=== PATIENT | male | born 1975 | race Caucasian/White ===

== ENCOUNTER 2020-09-20 23:01 | Inpatient (IN) | payer MEDICARE, OTHER ==
[~2020-09-20] VITALS: Ht 190.5 cm; Wt 117.9 kg
[~2020-09-20 23:01] MED LIST: AMIODARONE HCL200 MG PO; ASPIRIN EC81 MG PO; ATENOLOL50 MG PO; ATORVASTATIN CA20 MG PO; DILTIAZEM 24HR180 MG PO; FIORICET TAB1 EA PO; FORTAZ IM; GLUCOPHAGE XR500 MG PO; HEPARIN SO5000 UNIT2 SC; IPRATROPIU0.2 MG/1 M NEB; KLONOPIN TAB 00.5 MG PO; LANTUS INS100 UTS/M1 SC; LEVALBUTER1.25 MG/3 INH; LISINOPRIL20 MG PO; LOPID TAB 600600 MG PO; LOPRESSOR 50 MG50 MG PO; NEURONTIN100 MG PO; NORCO 7.5-3251 EACH PO; NORVASC 5 MG TAB5 MG PO; PEPCID20 MG PO; PREDNISONE20 MG PO; PRILOSEC OTC20 MG PO; ROCEPHIN IM/IV500 MG IV; SEROQUEL50 MG PO; SULAMYD 10% OP15 ML EYELF; THERAGRAN M TAB1 EA PO; VIBRAMYCIN100 MG PO; ZANAFLEX4 MG PO; ZYLOPRIM 100 M100 MG PO; ZYVOX IV 6600 MG/300 INJ
[2020-09-20 23:38] LABS: HEMOGLOBIN 10.1 gm/dl (14.0-17.5); RED BLOOD COUNT 3.55 M/UL (4.20-5.50); WHITE BLOOD COUNT 15.1 K/UL (4.5-11.0)
[2020-09-21 00:06] LABS: BUN/CREATININE RATIO 17 (0-10)
[2020-09-21] MEDS ORDERED: SEROQUEL100 MG PO (12:57)
[2020-09-21] MEDS ORDERED: LOPRESSOR 25 MG25 MG PO (12:58)
[2020-09-21] MEDS ORDERED: METHOCARBAMOL500 MG PO (12:58)
[2020-09-21] MEDS ORDERED: PROTONIX40 MG PO (12:58)
[2020-09-21] MEDS ORDERED: MELATONIN3 MG PO (12:59)
[2020-09-21] MEDS ORDERED: ELIQUIS5 MG PO (12:59)
[2020-09-21] MEDS ORDERED: LIPITOR80 MG PO (12:59)
[2020-09-21] MEDS ORDERED: MYLANTA MAXIMU355 ML PO (13:00)
[2020-09-21] MEDS ORDERED: NITROSTAT0.4 MG SL (13:02)
[2020-09-21] MEDS ORDERED: ZOFRAN 4 MG TAB4 MG PO (13:02)
[2020-09-21] MEDS ORDERED: HUMALOG100 UNIT/1 SC (13:06)
[2020-09-21] MEDS ORDERED: ALBUTEROL2.5 MG/3 M INH (13:07)
[2020-09-21] MEDS ORDERED: SEROQUEL25 MG PO (13:08)
[2020-09-21] MEDS ORDERED: ACETAMINOP650 MG/201 PO (13:08)
[2020-09-21] MEDS ORDERED: MYCOSTATIN OINT15 GM TOP (13:09)
[2020-09-21] MEDS ORDERED: DOCUSATE SODIU100 MG PO (13:10)
[2020-09-21] MEDS ORDERED: MULTIVITAMIN1 EACH PO (13:10)
[2020-09-21] MEDS ORDERED: SENNA S TABLET1 EACH PO (13:11)
[2020-09-21] MEDS ORDERED: DAKIN'S473 M1 TOP (13:12)
[2020-09-21] MEDS ORDERED: OXYCODONE HCL5 MG PO (13:13)
[2020-09-21] MEDS ORDERED: ZINC OXIDE28 GM TOP (13:20)
[2020-09-22 04:37] LABS: BUN/CREATININE RATIO 14 (0-10)
[2020-09-22 04:47] LABS: WHITE BLOOD COUNT 11.5 K/UL (4.5-11.0)
[2020-09-22 04:51] LABS: HEMOGLOBIN 7.5 gm/dl (14.0-17.5); RED BLOOD COUNT 2.77 M/UL (4.20-5.50)
[2020-09-25 05:52] LABS: HEMOGLOBIN 8.1 gm/dl (14.0-17.5); WHITE BLOOD COUNT 11.5 K/UL (4.5-11.0)
[2020-09-25 06:14] LABS: BUN/CREATININE RATIO 22 (0-10)
[2020-09-26 05:48] LABS: HEMOGLOBIN 8.5 gm/dl (14.0-17.5); RED BLOOD COUNT 3.06 M/UL (4.20-5.50); WHITE BLOOD COUNT 14.3 K/UL (4.5-11.0)
[2020-09-26 06:08] LABS: BUN/CREATININE RATIO 23 (0-10)
[2020-09-27 05:19] LABS: HEMOGLOBIN 8.1 gm/dl (14.0-17.5); RED BLOOD COUNT 2.85 M/UL (4.20-5.50); WHITE BLOOD COUNT 14.2 K/UL (4.5-11.0)
[2020-09-27 05:32] LABS: BUN/CREATININE RATIO 20 (0-10)
[2020-09-28 06:36] LABS: HEMOGLOBIN 8.4 gm/dl (14.0-17.5); RED BLOOD COUNT 3.05 M/UL (4.20-5.50)
[2020-09-28 06:49] LABS: BUN/CREATININE RATIO 24 (0-10)
[2020-09-29 02:14] LABS: RED BLOOD COUNT 2.88 M/UL (4.20-5.50); WHITE BLOOD COUNT 12.5 K/UL (4.5-11.0)
[2020-09-29 02:45] LABS: BUN/CREATININE RATIO 22 (0-10)
[2020-09-30 06:36] LABS: HEMOGLOBIN 8.4 gm/dl (14.0-17.5); RED BLOOD COUNT 3.12 M/UL (4.20-5.50); WHITE BLOOD COUNT 13.2 K/UL (4.5-11.0)
[2020-09-30 07:10] LABS: BUN/CREATININE RATIO 24 (0-10)
[2020-10-01 03:27] LABS: HEMOGLOBIN 8.4 gm/dl (14.0-17.5); RED BLOOD COUNT 2.98 M/UL (4.20-5.50); WHITE BLOOD COUNT 13.4 K/UL (4.5-11.0)
[2020-10-01 04:00] LABS: BUN/CREATININE RATIO 34 (0-10)
--- NOTE | 2020-10-01 13:31 | NUR ---
Single lumen PICC line inserted in the right brachial vein.
[2020-10-03 04:01] LABS: HEMOGLOBIN 8.3 gm/dl (14.0-17.5); RED BLOOD COUNT 2.95 M/UL (4.20-5.50); WHITE BLOOD COUNT 13.3 K/UL (4.5-11.0)
[2020-10-03 04:27] LABS: BUN/CREATININE RATIO 36 (0-10)
[2020-10-04 06:27] LABS: HEMOGLOBIN 8.7 gm/dl (14.0-17.5); RED BLOOD COUNT 3.08 M/UL (4.20-5.50); WHITE BLOOD COUNT 13.8 K/UL (4.5-11.0)
[2020-10-04 07:00] LABS: BUN/CREATININE RATIO 33 (0-10)
[2020-10-06 07:01] LABS: HEMOGLOBIN 8.6 gm/dl (14.0-17.5); RED BLOOD COUNT 3.06 M/UL (4.20-5.50); WHITE BLOOD COUNT 12.9 K/UL (4.5-11.0)
[2020-10-06 07:22] LABS: BUN/CREATININE RATIO 25 (0-10)
[2020-10-07 03:23] LABS: HEMOGLOBIN 8.7 gm/dl (14.0-17.5); RED BLOOD COUNT 3.06 M/UL (4.20-5.50); WHITE BLOOD COUNT 13.5 K/UL (4.5-11.0)
[2020-10-07 04:11] LABS: BUN/CREATININE RATIO 44 (0-10)
[2020-10-08 05:19] LABS: BUN/CREATININE RATIO 37 (0-10)
[2020-10-08 05:34] LABS: HEMOGLOBIN 8.4 gm/dl (14.0-17.5); RED BLOOD COUNT 2.98 M/UL (4.20-5.50); WHITE BLOOD COUNT 12.2 K/UL (4.5-11.0)
--- NOTE | 2020-10-08 15:49 | NUR ---
ADMINISTERED RAPID COVID TEST
[2020-10-08] MEDS ORDERED: OXYCODONE HCL5 MG PO (15:57)
[2020-10-08] MEDS ORDERED: LANTUS INS100 UTS/M1 SC (15:57)
[2020-10-08] MEDS ORDERED: ASPIRIN EC81 MG PO (15:57)
[2020-10-08] MEDS ORDERED: LOPRESSOR 50 MG50 MG PO (15:57)
[2020-10-12 02:19] LABS: HEMOGLOBIN 8.3 gm/dl (14.0-17.5); RED BLOOD COUNT 2.94 M/UL (4.20-5.50); WHITE BLOOD COUNT 12.5 K/UL (4.5-11.0)
[2020-10-12 02:38] LABS: BUN/CREATININE RATIO 33 (0-10)
== END 2020-10-16 23:24 | DRG 853 ==
LOC: ER1 23:01 → MED SURG 4 09-21 05:01 → CDU 09-21 05:01 → MED SURG 4 09-21 12:04
PROVIDERS: Emergency Medicine; Family Medicine; Internal Medicine; ADMIT Internal Medicine
PROC: 0JD70ZZ Extraction of Back Subcutaneous Tissue and Fascia, Open Approach (ICD-10-PCS; principal; 2020-09-24)
PROC: B24BZZZ Ultrasonography of Heart with Aorta (ICD-10-PCS; 2020-10-01)
DX: A41.52 Sepsis due to Pseudomonas (principal); L89.154 Pressure ulcer of sacral region, stage 4; I63.9 Cerebral infarction, unspecified; G81.94 Hemiplegia, unspecified affecting left nondominant side; E87.2 Acidosis; D62 Acute posthemorrhagic anemia; E78.5 Hyperlipidemia, unspecified; Z20.822 Contact with and (suspected) exposure to COVID-19; F17.210 Nicotine dependence, cigarettes, uncomplicated; E11.65 Type 2 diabetes mellitus with hyperglycemia; E83.42 Hypomagnesemia; I10 Essential (primary) hypertension; D73.89 Other diseases of spleen; R00.0 Tachycardia, unspecified; G47.00 Insomnia, unspecified; J44.9 Chronic obstructive pulmonary disease, unspecified; I48.0 Paroxysmal atrial fibrillation; E66.01 Morbid (severe) obesity due to excess calories; Z68.32 Body mass index [BMI] 32.0-32.9, adult; Z88.1 Allergy status to other antibiotic agents; Z88.8 Allergy status to other drugs, medicaments and biological substances; Z83.2 Family history of diseases of the blood and blood-forming organs and certain disorders involving the immune mechanism; Z90.49 Acquired absence of other specified parts of digestive tract; Z93.1 Gastrostomy status; Z79.01 Long term (current) use of anticoagulants; Z79.82 Long term (current) use of aspirin; Z79.4 Long term (current) use of insulin; Z79.899 Other long term (current) drug therapy
CPT/HCPCS: ECHO; 36415; 70450; 71045; 73564; 74018; 74230; 80048; 80053; 81001; 82550; 82553; 82962; 83605; 83735; 83874; 84100; 84484; 85007; 85018; 85025; 85027; 86140; 87040; 87070; 87077; 87086; 87186; 87205; 92611-GN; 93005; 93306; 94640; 94664; 94760; 96365; 96367; 96375; 96376; 97110; 97110-GP-CQ; 97112; 97161; 97166; 97530-GP-CQ; 99285; A6212; J1100; J1170; J1650; J2001; J2020; J2250; J2270; J2405; J2543; J2704; J3010; J3475; J7030; J7120; Q9967; U0002